=== PATIENT | male | born 1990 | race African-American/Black ===

== ENCOUNTER 2022-09-08 10:29 | Emergency (ER) | payer OTHER ==
[~2022-09-08] VITALS: Ht 182.9 cm; Wt 85.4 kg
[2022-09-08 13:34] LABS: BASO % 0.4 % (0.0-1.0); EOS # 0.1 10^3/uL (0.0-0.5); EOS % 1.3 % (0.0-3.0); HEMATOCRIT 45.6 % (42.0-52.0); HEMOGLOBIN 14.6 g/dl (13.5-17.5); LYMPH % 44.8 % (24.0-44.0); MEAN CORPUSCULAR HEMOGLOBIN 28.1 pg (27.0-33.0); MEAN CORPUSCULAR VOLUME 87.9 fl (80.0-96.0); MONO # 0.4 10^3/uL (0.0-0.8); MONO % 8.6 % (2.0-8.0); NEUTROPHILS % 44.7 % (36.0-66.0); PLATELET COUNT, AUTOMATED 151 10^3/uL (150-450); RED BLOOD COUNT 5.19 10^6/uL (4.30-6.10); WHITE BLOOD COUNT 4.6 10^3/uL (4.0-10.0)
[2022-09-08 13:47] LABS: INR 0.93; PROTHROMBIN TIME 12.7 SECONDS (12.5-14.5)
[2022-09-08] MEDS ORDERED: GI COCKTAIL 50ML BTL(HYOSCYAMINE/MAALOX/LIDOCAINE VISCOUS)(1:3:1) PO ONE (13:50)
[2022-09-08 14:01] LABS: CK-MB VALUE MASS < 1.0 NG/ML (<3.6)
[2022-09-08 14:26] LABS: ALBUMIN 4.1 G/DL (3.2-5.2); ALKALINE PHOSPHATASE 69 U/L (46-116); ALT/SGPT 27 U/L (7.0-40); AST/SGOT 33 U/L (<34); BILIRUBIN,DIRECT 0.2 MG/DL (<0.4); BILIRUBIN,TOTAL 0.6 MG/DL (0.3-1.2); BLOOD UREA NITROGEN 17 MG/DL (9-23); CALCIUM LEVEL 9.3 MG/DL (8.5-10.1); CARBON DIOXIDE LEVEL 28 MMOL/L (20-31); CHLORIDE LEVEL 103 MMOL/L (98-107); CPK CREATINE PHOSPHOKINASE 1735 U/L (46-171); CREATININE FOR GFR 1.02 MG/DL (0.70-1.30); GLOMERULAR FILTRATION RATE > 60.0 (>60); GLUCOSE, FASTING 91 MG/DL (60-100); MB/CK RELATIVE INDEX 0.05 (< OR =4); POTASSIUM SERUM 4.2 MMOL/L (3.5-5.1); SODIUM LEVEL 139 MMOL/L (136-145); TOTAL PROTEIN 7.4 G/DL (5.7-8.2)
[2022-09-08] MEDS ORDERED: ISOVUE-370 76% 100ML VIAL As Ordered ONE (14:38)
[2022-09-08 15:30] VITALS: BP 111/67
== END 2022-09-08 15:59 | disposition home or self-care (01) ==
LOC: M ED 10:29
DX: B34.9 Viral infection, unspecified (principal); J00 Acute nasopharyngitis [common cold]
CPT/HCPCS: 36415; 71275; 80048; 80076; 82550; 82553; 83605; 84484; 85025; 85610; 87486; 87581; 87633; 87798; 93005; 93041; 94760; 99285; Q9967

== ENCOUNTER 2022-10-21 16:58 | Inpatient (IN) | payer OTHER ==
[~2022-10-21] VITALS: Ht 177.8 cm; Wt 82.5 kg
[~2022-10-21 16:58] MED LIST: UNRESOLVED CLARIFICATION ENTRY XX SCH
[2022-10-21 18:25] LABS: HEMATOCRIT 48.3 % (42.0-52.0); HEMOGLOBIN 15.8 g/dl (13.5-17.5); MEAN CORPUSCULAR HEMOGLOBIN 28.9 pg (27.0-33.0); MEAN CORPUSCULAR HGB CONC 32.7 g/dl (32.0-36.5); MEAN CORPUSCULAR VOLUME 88.3 fl (80.0-96.0); PLATELET COUNT, AUTOMATED 183 10^3/uL (150-450); RED BLOOD COUNT 5.47 10^6/uL (4.30-6.10); WHITE BLOOD COUNT 5.4 10^3/uL (4.0-10.0)
[2022-10-21 18:40] LABS: AMPHETAMINES LEVEL URINE NEGATIVE (NEGATIVE); BARBITURATES URINE NEGATIVE (NEGATIVE); BENZODIAZEPINES URINE NEGATIVE (NEGATIVE); CANNABINOIDS URINE NEGATIVE (NEGATIVE); COCAINE METABOLITE URINE NEGATIVE (NEGATIVE); METHADONE URINE NEGATIVE (NEGATIVE); OPIATES URINE NEGATIVE (NEGATIVE); PHENCYCLIDINE URINE NEGATIVE (NEGATIVE)
[2022-10-21 18:42] LABS: ETHYL ALCOHOL (ETHANOL) 0.003 % (0.000-0.010)
[2022-10-21 18:43] LABS: ACETAMINOPHEN LEVEL < 2.0 UG/ML (10.0-20.0)
[2022-10-21 18:44] LABS: ALBUMIN 4.6 G/DL (3.2-5.2); ALKALINE PHOSPHATASE 70 U/L (46-116); ALT/SGPT 20 U/L (7.0-40); AST/SGOT 14 U/L (<34); BILIRUBIN,DIRECT 0.2 MG/DL (<0.4); BILIRUBIN,TOTAL 0.9 MG/DL (0.3-1.2); BLOOD UREA NITROGEN 16 MG/DL (9-23); CARBON DIOXIDE LEVEL 27 MMOL/L (20-31); CHLORIDE LEVEL 104 MMOL/L (98-107); CREATININE FOR GFR 1.11 MG/DL (0.70-1.30); GLOMERULAR FILTRATION RATE > 60.0 (>60); GLUCOSE, FASTING 84 MG/DL (60-100); POTASSIUM SERUM 4.2 MMOL/L (3.5-5.1); SALICYLATE LEVEL < 3.0 MG/DL (<30); SODIUM LEVEL 139 MMOL/L (136-145); TOTAL PROTEIN 7.7 G/DL (5.7-8.2)
[2022-10-21 18:46] LABS: THYROID STIMULATING HORMONE 1.193 uIU/ML (0.55-4.78)
[2022-10-21] MEDS ORDERED: AMOX875T2 PO ×2 (18:47)
[2022-10-21] MEDS ORDERED: ONDA8TAB8 SL (18:47)
[2022-10-21] MEDS ORDERED: PROT1TAB2 PO (18:47)
[2022-10-21] MEDS ORDERED: HOME MED LIST COMPLETE! XX SCH (18:50)
[2022-10-21] MEDS ORDERED: ONDANSETRON 4MG ORAL DISINTEGRATING TAB SL PRN (20:05)
[2022-10-21] MEDS ORDERED: ACETAMINOPHEN TAB 650MG DOSE (2X325MG) PO PRN (20:05)
[2022-10-21] MEDS ORDERED: MOM 30ML SUSPENSION UDC PO PRN (20:05)
[2022-10-21] MEDS ORDERED: MAALOX 30 ML SUSP *UDC PO PRN (20:05)
[2022-10-21 23:12] VITALS: BP 149/87
[2022-10-22] MEDS: AUGMENTIN 875 MG TAB PO SCH ×3 (01:33→20:51)
[2022-10-22 06:24] VITALS: BP 128/81
[2022-10-22] MEDS ORDERED: UNRESOLVED CLARIFICATION ENTRY XX ONE (08:25)
[2022-10-22] MEDS ORDERED: PANTOPRAZOLE 40MG TAB (PROTONIX) PO SCH (09:00)
[2022-10-22] MEDS: SERTRALINE HCL 50 MG TAB PO SCH (10:06)
[2022-10-22] MEDS: SUCRALFATE SUSP 1GM/10ML UD PO SCH ×3 (13:44→20:51)
[2022-10-22] MEDS: LACTOBACILLUS ACIDOPHILUS CAP (BACID) PO SCH ×2 (13:45→17:26)
[2022-10-22 18:02] VITALS: BP 131/90
[2022-10-22] MEDS: traZODone 50 MG TAB PO PRN (20:51)
[2022-10-22] MEDS: PANTOPRAZOLE 40MG TAB (PROTONIX) PO SCH (20:51)
[2022-10-22] MEDS ORDERED: risperiDONE 0.5 MG TAB PO SCH (21:00)
[2022-10-23 06:13] VITALS: BP 131/62
[2022-10-23] MEDS: SUCRALFATE SUSP 1GM/10ML UD PO SCH ×4 (06:37→20:24)
[2022-10-23 08:01] LABS: CHOLESTEROL RISK RATIO 5.07 (<5)
[2022-10-23] MEDS: SERTRALINE HCL 50 MG TAB PO SCH (08:43)
[2022-10-23] MEDS: PANTOPRAZOLE 40MG TAB (PROTONIX) PO SCH ×2 (08:43→20:24)
[2022-10-23] MEDS: AUGMENTIN 875 MG TAB PO SCH ×2 (08:43→20:24)
[2022-10-23] MEDS: LACTOBACILLUS ACIDOPHILUS CAP (BACID) PO SCH ×3 (08:43→17:00)
[2022-10-23] MEDS: risperiDONE 0.5 MG TAB PO SCH ×2 (14:31→20:23)
[2022-10-23 18:16] VITALS: BP 148/81
[2022-10-23] MEDS: traZODone 50 MG TAB PO PRN (20:24)
[2022-10-24 05:47] VITALS: BP 121/78
[2022-10-24] MEDS: SUCRALFATE SUSP 1GM/10ML UD PO SCH ×4 (06:31→20:50)
[2022-10-24] MEDS: SERTRALINE HCL 50 MG TAB PO SCH (08:53)
[2022-10-24] MEDS: PANTOPRAZOLE 40MG TAB (PROTONIX) PO SCH ×2 (08:53→20:50)
[2022-10-24] MEDS: risperiDONE 0.5 MG TAB PO SCH ×2 (08:53→20:50)
[2022-10-24] MEDS: AUGMENTIN 875 MG TAB PO SCH ×2 (08:53→20:50)
[2022-10-24] MEDS: LACTOBACILLUS ACIDOPHILUS CAP (BACID) PO SCH ×3 (08:53→17:14)
[2022-10-24 17:22] VITALS: BP 122/86
[2022-10-24] MEDS: traZODone 50 MG TAB PO PRN (20:50)
[2022-10-25 05:57] VITALS: BP 129/66
[2022-10-25] MEDS: SUCRALFATE SUSP 1GM/10ML UD PO SCH ×4 (07:23→20:15)
[2022-10-25] MEDS: LACTOBACILLUS ACIDOPHILUS CAP (BACID) PO SCH ×3 (07:23→17:05)
[2022-10-25] MEDS: risperiDONE 0.5 MG TAB PO SCH ×2 (09:20→20:15)
[2022-10-25] MEDS: PANTOPRAZOLE 40MG TAB (PROTONIX) PO SCH ×2 (09:20→20:15)
[2022-10-25] MEDS: SERTRALINE 100 MG TAB PO SCH (09:20)
[2022-10-25 16:08] VITALS: BP 127/76
[2022-10-25] MEDS: traZODone 50 MG TAB PO PRN (20:15)
[2022-10-26] MEDS: SUCRALFATE SUSP 1GM/10ML UD PO SCH ×4 (06:30→20:03)
[2022-10-26 06:32] VITALS: BP 127/76
[2022-10-26] MEDS: LACTOBACILLUS ACIDOPHILUS CAP (BACID) PO SCH ×3 (08:52→17:19)
[2022-10-26] MEDS: SERTRALINE 100 MG TAB PO SCH (08:52)
[2022-10-26] MEDS: PANTOPRAZOLE 40MG TAB (PROTONIX) PO SCH ×2 (08:53→20:03)
[2022-10-26] MEDS: risperiDONE 0.5 MG TAB PO SCH ×2 (08:53→20:04)
[2022-10-26 15:57] VITALS: BP 143/78
[2022-10-26] MEDS: traZODone 50 MG TAB PO PRN (20:03)
[2022-10-27 06:30] VITALS: BP 137/55
[2022-10-27] MEDS: SUCRALFATE SUSP 1GM/10ML UD PO SCH ×4 (06:33→20:14)
[2022-10-27] MEDS: PANTOPRAZOLE 40MG TAB (PROTONIX) PO SCH ×2 (07:39→20:14)
[2022-10-27] MEDS: LACTOBACILLUS ACIDOPHILUS CAP (BACID) PO SCH ×3 (07:40→17:02)
[2022-10-27] MEDS: SERTRALINE 100 MG TAB PO SCH (07:40)
[2022-10-27] MEDS: risperiDONE 0.5 MG TAB PO SCH ×2 (07:40→20:14)
[2022-10-27] MEDS ORDERED: traZODone 25MG PER 1/2 TABLET PO PRN (11:40)
[2022-10-27 16:11] VITALS: BP 124/72
[2022-10-28 06:19] VITALS: BP 115/62
[2022-10-28] MEDS: SUCRALFATE SUSP 1GM/10ML UD PO SCH (06:37)
[2022-10-28] MEDS: SERTRALINE 100 MG TAB PO SCH (07:58)
[2022-10-28] MEDS: PANTOPRAZOLE 40MG TAB (PROTONIX) PO SCH (07:58)
[2022-10-28] MEDS: LACTOBACILLUS ACIDOPHILUS CAP (BACID) PO SCH (07:58)
[2022-10-28] MEDS: risperiDONE 0.5 MG TAB PO SCH (07:58)
[2022-10-28] MEDS ORDERED: RISATAB3 PO (10:54)
[2022-10-28] MEDS ORDERED: SUCR1ORA PO (10:54)
[2022-10-28] MEDS ORDERED: TRAZ-252 PO (10:54)
[2022-10-28] MEDS ORDERED: PANT40TA29 PO ×2 (10:54→10:59)
[2022-10-28] MEDS ORDERED: ZOLO100T PO ×2 (10:54→17:49)
[2022-10-28] MEDS ORDERED: RISP-8 PO (10:54)
[2022-10-28] MEDS ORDERED: RISP1TAB42 PO ×2 (10:57→17:47)
== END 2022-10-28 11:13 | disposition home or self-care (01) | DRG 885 ==
LOC: M ED 16:58 → M ED INP 20:04 → M PSY 22:52
PROVIDERS: ADMIT Psychiatry & Neurology Psychiatry; ATTEND Psychiatry & Neurology Psychiatry
DX: F32.3 Major depressive disorder, single episode, severe with psychotic features (principal); R45.851 Suicidal ideations; F32.A Depression, unspecified; Z79.899 Other long term (current) drug therapy; I10 Essential (primary) hypertension

== ENCOUNTER 2022-11-01 20:04 | Emergency (ER) | payer OTHER ==
[~2022-11-01] VITALS: Ht 177.8 cm; Wt 81.4 kg
[~2022-11-01 20:04] MED LIST changes: +AMOX875T2 PO; +ONDA8TAB8 SL; +PANT40TA29 PO; +PROT1TAB2 PO; +RISATAB3 PO; +RISP-8 PO; +RISP1TAB42 PO; +SUCR1ORA PO; +TRAZ-252 PO; -UNRESOLVED CLARIFICATION ENTRY XX SCH; +ZOLO100T PO
[2022-11-01 21:17] LABS: HEMATOCRIT 42.3 % (42.0-52.0); HEMOGLOBIN 14.2 g/dl (13.5-17.5); MEAN CORPUSCULAR HGB CONC 33.6 g/dl (32.0-36.5); MEAN CORPUSCULAR VOLUME 86.5 fl (80.0-96.0); PLATELET COUNT, AUTOMATED 168 10^3/uL (150-450); RED BLOOD COUNT 4.89 10^6/uL (4.30-6.10); WHITE BLOOD COUNT 5.7 10^3/uL (4.0-10.0)
[2022-11-01 21:29] LABS: ETHYL ALCOHOL (ETHANOL) < 0.003 % (0.000-0.010)
[2022-11-01 21:30] LABS: ACETAMINOPHEN LEVEL < 2.0 UG/ML (10.0-20.0)
[2022-11-01 21:31] LABS: ALKALINE PHOSPHATASE 69 U/L (46-116); ALT/SGPT 20 U/L (7.0-40); AST/SGOT 21 U/L (<34); BILIRUBIN,DIRECT < 0.1 MG/DL (<0.4); BILIRUBIN,TOTAL 0.3 MG/DL (0.3-1.2); BLOOD UREA NITROGEN 16 MG/DL (9-23); CALCIUM LEVEL 9.4 MG/DL (8.5-10.1); CARBON DIOXIDE LEVEL 26 MMOL/L (20-31); CHLORIDE LEVEL 105 MMOL/L (98-107); CREATININE FOR GFR 1.14 MG/DL (0.70-1.30); GLOMERULAR FILTRATION RATE > 60.0 (>60); GLUCOSE, FASTING 99 MG/DL (60-100); POTASSIUM SERUM 4.1 MMOL/L (3.5-5.1); SALICYLATE LEVEL < 3.0 MG/DL (<30); SODIUM LEVEL 138 MMOL/L (136-145); TOTAL PROTEIN 7.1 G/DL (5.7-8.2)
[2022-11-01 21:33] LABS: THYROID STIMULATING HORMONE 2.564 uIU/ML (0.55-4.78)
[2022-11-01 21:40] LABS: AMPHETAMINES LEVEL URINE NEGATIVE (NEGATIVE); BARBITURATES URINE NEGATIVE (NEGATIVE); BENZODIAZEPINES URINE NEGATIVE (NEGATIVE); CANNABINOIDS URINE NEGATIVE (NEGATIVE); COCAINE METABOLITE URINE NEGATIVE (NEGATIVE); METHADONE URINE NEGATIVE (NEGATIVE); OPIATES URINE NEGATIVE (NEGATIVE); PHENCYCLIDINE URINE NEGATIVE (NEGATIVE)
[2022-11-01] MEDS ORDERED: RISATAB3 PO (22:19)
[2022-11-01] MEDS ORDERED: SUCR1SS PO (22:19)
[2022-11-01] MEDS ORDERED: RISP-8 PO (22:19)
[2022-11-01] MEDS ORDERED: ZOLO100T PO (22:19)
[2022-11-01] MEDS ORDERED: TRAZ-252 PO (22:19)
[2022-11-01] MEDS ORDERED: HOME MED LIST COMPLETE! XX SCH (22:20)
[2022-11-01 23:15] VITALS: BP 128/76
== END 2022-11-01 23:17 | disposition home or self-care (01) ==
LOC: M ED 20:04
DX: F32.9 Major depressive disorder, single episode, unspecified (principal); Z79.899 Other long term (current) drug therapy

== ENCOUNTER 2023-03-03 14:29 | Inpatient (IN) | payer OTHER ==
[~2023-03-03] VITALS: Ht 172.7 cm; Wt 86.4 kg
[~2023-03-03 14:29] MED LIST changes: +SUCR1SS PO
[2023-03-03 15:53] LABS: HEMATOCRIT 45.2 % (42.0-52.0); HEMOGLOBIN 14.9 g/dl (13.5-17.5); MEAN CORPUSCULAR HEMOGLOBIN 28.9 pg (27.0-33.0); MEAN CORPUSCULAR VOLUME 87.8 fl (80.0-96.0); PLATELET COUNT, AUTOMATED 194 10^3/uL (150-450); RED BLOOD COUNT 5.15 10^6/uL (4.30-6.10); WHITE BLOOD COUNT 6.3 10^3/uL (4.0-10.0)
[2023-03-03 16:01] LABS: ETHYL ALCOHOL (ETHANOL) < 0.003 % (0.000-0.010); SALICYLATE LEVEL < 3.0 MG/DL (<30)
[2023-03-03 16:02] LABS: ACETAMINOPHEN LEVEL < 2.0 UG/ML (10.0-20.0)
[2023-03-03 16:03] LABS: ALBUMIN 4.2 G/DL (3.2-5.2); ALKALINE PHOSPHATASE 65 U/L (46-116); ALT/SGPT 22 U/L (7.0-40); AST/SGOT < 8 U/L (<34); BILIRUBIN,DIRECT 0.1 MG/DL (<0.4); BILIRUBIN,TOTAL 0.3 MG/DL (0.3-1.2); BLOOD UREA NITROGEN 14 MG/DL (9-23); CALCIUM LEVEL 9.7 MG/DL (8.5-10.1); CARBON DIOXIDE LEVEL 28 MMOL/L (20-31); CHLORIDE LEVEL 105 MMOL/L (98-107); CREATININE FOR GFR 0.99 MG/DL (0.70-1.30); GLOMERULAR FILTRATION RATE > 60.0 (>60); GLUCOSE, FASTING 98 MG/DL (60-100); POTASSIUM SERUM 4.5 MMOL/L (3.5-5.1); SODIUM LEVEL 139 MMOL/L (136-145); TOTAL PROTEIN 7.4 G/DL (5.7-8.2)
[2023-03-03 16:04] LABS: THYROID STIMULATING HORMONE 1.386 uIU/ML (0.55-4.78)
[2023-03-03 18:17] LABS: AMPHETAMINES LEVEL URINE NEGATIVE (NEGATIVE); BARBITURATES URINE NEGATIVE (NEGATIVE); BENZODIAZEPINES URINE NEGATIVE (NEGATIVE); CANNABINOIDS URINE NEGATIVE (NEGATIVE); COCAINE METABOLITE URINE NEGATIVE (NEGATIVE); METHADONE URINE NEGATIVE (NEGATIVE); OPIATES URINE NEGATIVE (NEGATIVE); PHENCYCLIDINE URINE NEGATIVE (NEGATIVE)
[2023-03-03] MEDS: traZODone 25MG PER 1/2 TABLET PO PRN (21:55)
[2023-03-04] MEDS ORDERED: BUPR-365 PO (00:59)
[2023-03-04] MEDS ORDERED: HOME MED LIST COMPLETE! XX SCH (01:05)
[2023-03-05] MEDS ORDERED: traZODone 50 MG TAB PO ONE (00:35)
[2023-03-05] MEDS: traZODone 25MG PER 1/2 TABLET PO PRN (21:19)
[2023-03-05] MEDS ORDERED: traZODone 25MG PER 1/2 TABLET PO ONE (21:25)
[2023-03-06] MEDS ORDERED: buPROPion **XL** TABLET 150MG (WELLBUTRIN XL) PO STA (09:10)
[2023-03-06] MEDS ORDERED: SERTRALINE 100 MG TAB PO ONE (09:10)
[2023-03-06] MEDS ORDERED: PANTOPRAZOLE 40MG TAB (PROTONIX) PO ONE (09:10)
[2023-03-06] MEDS ORDERED: risperiDONE 1 MG TAB PO ONE (09:10)
[2023-03-06] MEDS ORDERED: traZODone 25MG PER 1/2 TABLET PO PRN (20:55)
[2023-03-06] MEDS ORDERED: traZODone 50 MG TAB PO PRN (20:55)
[2023-03-07] MEDS ORDERED: traZODone 50 MG TAB PO PRN (08:10)
[2023-03-07] MEDS ORDERED: traZODone 25MG PER 1/2 TABLET PO PRN (08:24)
[2023-03-07] MEDS ORDERED: PANTOPRAZOLE 40MG TAB (PROTONIX) PO SCH (09:00)
[2023-03-07] MEDS ORDERED: SERTRALINE 100 MG TAB PO SCH (09:00)
[2023-03-07] MEDS ORDERED: buPROPion **XL** TABLET 150MG (WELLBUTRIN XL) PO SCH (09:00)
[2023-03-07] MEDS: risperiDONE 1 MG TAB PO SCH ×2 (09:43→20:12)
[2023-03-07] MEDS ORDERED: MOM 30ML SUSPENSION UDC PO PRN (12:00)
[2023-03-07] MEDS ORDERED: MAALOX 30 ML SUSP *UDC PO PRN (12:00)
[2023-03-07] MEDS ORDERED: diphenhydrAMINE 25MG CAP PO PRN (12:00)
[2023-03-07] MEDS ORDERED: ACETAMINOPHEN TAB 650MG DOSE (2X325MG) PO PRN (12:00)
[2023-03-07 15:41] VITALS: BP 138/78; TEMP 97.7; O2SAT 99
[2023-03-07] MEDS ORDERED: traZODone 25MG PER 1/2 TABLET PO ONE (20:45)
[2023-03-08 06:04] VITALS: BP 119/60; TEMP 97.8; O2SAT 98
[2023-03-08] MEDS: SERTRALINE 100 MG TAB PO SCH (10:27)
[2023-03-08] MEDS: risperiDONE 1 MG TAB PO SCH ×2 (10:27→20:03)
[2023-03-08] MEDS: buPROPion **XL** TABLET 150MG (WELLBUTRIN XL) PO SCH (10:27)
[2023-03-08 18:49] VITALS: BP 118/73; TEMP 97.3; O2SAT 98
[2023-03-08] MEDS: traZODone 50 MG TAB PO SCH (20:03)
[2023-03-09 05:45] VITALS: BP 102/72; TEMP 98.8; O2SAT 97
[2023-03-09 07:22] LABS: CHOLESTEROL RISK RATIO 5.23 (<5); HDL CHOLESTEROL 31.5 MG/DL (>40); LDL CHOLESTEROL 111.3 MG/DL (<100); NON-HDL-C 133.5 MG/DL
[2023-03-09] MEDS ORDERED: TRAZ-252 PO (11:15)
[2023-03-09] MEDS: SERTRALINE 100 MG TAB PO SCH (11:32)
[2023-03-09] MEDS: risperiDONE 1 MG TAB PO SCH ×2 (11:32→20:02)
[2023-03-09] MEDS: buPROPion **XL** TABLET 150MG (WELLBUTRIN XL) PO SCH (11:32)
[2023-03-09 16:15] VITALS: BP 134/77; TEMP 98.4
[2023-03-09] MEDS: traZODone 50 MG TAB PO SCH (20:02)
[2023-03-10 06:33] VITALS: BP 112/62; TEMP 98; O2SAT 100
[2023-03-10] MEDS: buPROPion **XL** TABLET 150MG (WELLBUTRIN XL) PO SCH (09:17)
[2023-03-10] MEDS: SERTRALINE 100 MG TAB PO SCH (09:17)
[2023-03-10] MEDS: risperiDONE 1 MG TAB PO SCH (09:17)
== END 2023-03-10 11:13 | disposition home or self-care (01) | DRG 885 ==
LOC: M ED 14:29 → EDBD 14:29 → M ED INP 03-07 11:57 → M PSY 03-07 15:39
PROVIDERS: ADMIT Student in an Organized Health Care Education/Training Program; ATTEND Student in an Organized Health Care Education/Training Program
DX: F32.3 Major depressive disorder, single episode, severe with psychotic features (principal); R45.851 Suicidal ideations; I10 Essential (primary) hypertension; K21.9 Gastro-esophageal reflux disease without esophagitis; Z79.899 Other long term (current) drug therapy